=== PATIENT | male | born 1945 | race Caucasian/White ===

== ENCOUNTER 2016-07-26 07:03 | Emergency (ER) | payer OTHER ==
[2016-07-26] MEDS ORDERED: PONTOCAINE 0.5% OPH SOLUTION ONE (07:14)
[2016-07-26] MEDS ORDERED: FLUORI-I-STRIP ONE (07:14)
[2016-07-26] MEDS ORDERED: EYE-STREAM SOLUTION ONE (07:24)
[2016-07-26 07:34] VITALS: BP 144/84
--- NOTE | 2016-07-26 07:38 | PROVIDER DOCUMENTATION ---
[facility]-EE General - General Chief Complaint: Eye Complaint Stated Complaint: EYE COMPLAINT Time Seen by Provider: 07/26/16 07:32 Source: patient Allergies/Adverse Reactions: Patient Allergies Allergy/AdvReac Type Severity Reaction Status Date / Time No Known Allergies Allergy Verified 07/26/16 07:11 Home Medications: Home Medication List Medication Instructions Recorded Confirmed Last Taken Type Gentamicin 0.3% Oph Drops 2 drop LEFT EYE TID #1 bottle 07/26/16 Unknown Rx Losartan [Cozaar] 50 mg 07/26/16 07/26/16 History PRAVAstatin [Pravachol] 1 dose 07/26/16 07/26/16 History - History of Present Illness-EENT General Nature of Presenting Problem: eyes always watering yesterday started to hurt and turn red sneezes intermitently occasional cough EENT Location: reports: eye (L) Quality of Pain: reports: aching, tearing Severity: reports: moderate Onset/Duration: reports: 24 hours ago Timing: reports: still present Prearrival Treatment: Initiated no prearrival treatment Associated Symptoms: denies: fever, nasal congestion/drainage, sore throat, tooth pain Locality of Occurance: Home Similar Symptoms Previously?: Yes Recently seen or treated by another doctor?: No Review of Systems - Adult - REVIEW OF SYSTEMS - ADULT Constitutional: denies: chills, fever Eyes: reports: discharge, redness Ears, Nose, Mouth & Throat: reports: no symptoms reported Cardiovascular: reports: no symptoms reported Respiratory: reports: no symptoms reported Gastrointestinal: reports: no symptoms reported Genitourinary: reports: no symptoms reported Musculoskeletal: reports: no symptoms reported Integumentary: reports: no symptoms reported Neurological: reports: no symptoms reported Psychiatric: reports: no symptoms reported Endocrine: reports: no symptoms reported Hematologic/Lymphatic: reports: no symptoms reported Allergic/Immunologic: reports: no symptoms reported Past History - Adult - PAST MEDICAL HISTORY-ADULT Review of Records: reports: Nursing Assessment Review, Medications Reviewed, Social history reviewed & non-contributory. Major Childhood Illnesses: reports: denies history Cardiovascular: reports: denies history Respiratory: reports: denies history Gastrointestinal: reports: denies history Genitourinary: reports: denies history Musculoskeletal: reports: denies history Neurological: reports: denies history Psychiatric: reports: denies history Endocrine/Immune: reports: denies history Other Conditions: reports: denies history - FAMILY HISTORY Family History: reviewed, not pertinent - SOCIAL HISTORY Smoking: denies Substance Use: none/never Alcohol Use Frequency: never Physical Exam- EENT - Physical Exam EENT Initial Vital Signs Reviewed: Yes General Appearance: appears well Eye Exam: right eye: normal inspection (pterygium/ ectropion), left eye: conjunctival inflammation, bilateral eye: PERRL Nasal Exam: normal inspection Throat Exam: normal mouth inspection Neck: supple Respiratory: no respiratory distress Cardiovascular: regular rate, rhythm Abdominal Exam: soft Back Exam: normal inspection Extremity: normal range of motion Integumentary: normal color, normal turgor Neurologic: grossly normal Psych/Mental Status: normal mood/affect Procedures - EYE PROCEDURES Eye(s) Irrigated?: No Aneesh Lens Used for Irrigation?: No Eye Exam: Fluorescein Strip Antibiotic Oinment/Drops Admininstered: Left Eye Departure - Departure Time of Disposition Order: 07:39 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 These instructions are being provided to you so you can have an understanding of how to care for yourself upon discharge. Upon discharge from the Emergency Department, you are responsible for making arrangements for follow-up care by a physician of your choice. Take all prescribed medications as directed. Return to the Emergency Department immediately for any new or worsening symptoms. You may call the Physician Referral phone number at [phone] to obtain a list of Physicians who are taking new patients. Prescriptions: Gentamicin 0.3% Oph Drops 2 drop LEFT EYE TID #1 bottle
[2016-07-26] MEDS ORDERED: EYE-STREAM SOLUTION LEFT EYE ONE (07:50)
== END 2016-07-26 07:51 | disposition home or self-care (01) ==
LOC: P.ED 07:03
DX: H02.132 Senile ectropion of right lower eyelid (principal); H02.135 Senile ectropion of left lower eyelid; H10.9 Unspecified conjunctivitis; H57.12 Ocular pain, left eye; R06.7 Sneezing; R05 Cough